=== PATIENT | female | born 1945 | race Caucasian/White ===

== ENCOUNTER 2021-01-04 13:36 | Outpatient (CLI) | payer MEDICARE, MEDICAID | END 2021-01-04 13:37 | disposition home or self-care (01) | LOC: BICCT 13:36 | PROVIDERS: ATTEND Internal Medicine | DX: Z12.2 Encounter for screening for malignant neoplasm of respiratory organs (principal); F17.210 Nicotine dependence, cigarettes, uncomplicated; J98.11 Atelectasis; I70.0 Atherosclerosis of aorta; I25.10 Atherosclerotic heart disease of native coronary artery without angina pectoris; K76.9 Liver disease, unspecified; R91.1 Solitary pulmonary nodule; J98.4 Other disorders of lung | CPT/HCPCS: 71271 ==

== ENCOUNTER 2021-01-04 13:43 | Outpatient (CLI) | payer MEDICARE, MEDICAID | END 2021-01-04 13:44 | disposition home or self-care (01) | LOC: BICMAMMO 13:43 | PROVIDERS: ATTEND Internal Medicine | DX: Z12.31 Encounter for screening mammogram for malignant neoplasm of breast (principal); Z13.820 Encounter for screening for osteoporosis; Z78.0 Asymptomatic menopausal state | CPT/HCPCS: 77063; 77067; 77080 ==

== ENCOUNTER 2023-03-26 14:41 | Outpatient (CLI) | payer MEDICARE, MEDICAID | END 2023-03-26 14:42 | disposition home or self-care (01) | LOC: BICCT 14:41 | PROVIDERS: ATTEND Internal Medicine | DX: R91.1 Solitary pulmonary nodule (principal); I25.10 Atherosclerotic heart disease of native coronary artery without angina pectoris | CPT/HCPCS: 71250 ==

== ENCOUNTER 2023-08-03 20:05 | Emergency (ER) | payer MEDICARE, OTHER ==
[2023-08-03 20:46] LABS: #Basophils 0.1 thou/uL (0.0-0.2); #Eosinphils 0.1 thou/uL (0.0-0.7); #Monocytes 0.6 thou/uL (0.11-0.59); #Neutrophils 8.1 thou/uL (1.40-6.50); %Basophils 1.1 % (0.0-1.0); %Eosinophils 1.1 % (0.0-10.0); %Lymphocytes 9.4 % (21.0-51.0); %Monocytes 6.1 % (0.0-10.0); %Neutrophils 81.9 % (42.0-75.0); Hemoglobin 14.4 g/dL (12.0-16.0); Mean Corpuscular HGB CONC 32.7 g/dL (32.0-36.0); Mean Corpuscular Hemoglobin 30.6 pg (27.0-31.0); Mean Corpuscular Volume 93.4 fl (78.0-98.0); Mean Platelet Volume 11.1 fL (7.4-10.4); Platelet Count 139 10x3/uL (130-400); RBC Distribution Width 13.2 % (11.5-14.5); Red Blood Cell (RBC) Count 4.71 mill/uL (4.20-5.40); White Blood Cell (WBC) Count 9.9 10x3/uL (4.8-10.8)
[2023-08-03 21:00] LABS: PTT 28.5 sec (22.9-36.1)
[2023-08-03 21:12] LABS: Troponin I Less than 0.010 ng/mL (< 0.028)
[2023-08-03 21:14] LABS: ALT (SGPT) 15 U/L (8-55); AST (SGOT) 19 U/L (5-34); Albumin 4.2 g/dL (3.4-4.8); Alkaline Phosphatase 76 U/L (40-110); Anion Gap 9 mmol/L (10-20); BUN (Urea Nitrogen) 17 mg/dL (9.8-20.1); Bilirubin, Total 0.5 mg/dL (0.2-1.2); Calc. Creatinine Clearance 0 mL/min (70-130); Calcium 9.1 mg/dL (7.8-10.44); Carbon Dioxide 26 mmol/L (23-31); Chloride 107 mmol/L (98-107); Estimated GFR 92; Globulin 2.4 g/dL (2.4-3.5); Glucose 98 mg/dL (83-110); Potassium 3.4 mmol/L (3.5-5.1); Protein, Total 6.6 g/dL (5.8-8.1); Sodium 139 mmol/L (136-145)
[2023-08-03] MEDS ORDERED: Lidocaine 1% w/Epinephrine 1:100K 20 ML VIAL ONE (21:18)
[2023-08-04] MEDS ORDERED: Boostrix 0.5 ML (Tdap) VIAL (>/=7 yrs of age) ONE (00:25)
[2023-08-04] MEDS ORDERED: cefTRIAXone (ROCEPHIN) 2 GM VIAL ONE (00:25)
[2023-08-04] MEDS ORDERED: Acetaminophen 500 MG TAB ONE (00:25)
[2023-08-04] MEDS ORDERED: Sodium Chloride 0.9% 100 ML ONE (00:26)
== END 2023-08-04 01:01 | disposition home or self-care (01) ==
LOC: ERS 20:05
DX: S02.42XA Fracture of alveolus of maxilla, initial encounter for closed fracture (principal); S02.2XXA Fracture of nasal bones, initial encounter for closed fracture; S01.412A Laceration without foreign body of left cheek and temporomandibular area, initial encounter; S01.81XA Laceration without foreign body of other part of head, initial encounter; W01.0XXA Fall on same level from slipping, tripping and stumbling without subsequent striking against object, initial encounter; Y93.01 Activity, walking, marching and hiking; Z23 Encounter for immunization
CPT/HCPCS: 12001; 12013; 70450; 70486; 71045; 72125; 72170; 80053; 84484; 85025; 85610; 85730; 90471; 90715; 96365; G0390; J0696; J3490

== ENCOUNTER 2024-07-29 18:19 | Inpatient (IN) | payer MEDICARE, MEDICAID ==
[2024-07-29] MEDS ORDERED: Ondansetron PF 4 MG/2 ML Vial IVP PRN ×2 (18:45→20:35)
[2024-07-29] MEDS ORDERED: Acetaminophen 325 MG TAB PO PRN (18:45)
[2024-07-29] MEDS ORDERED: Ondansetron ODT 4 MG TAB SL PRN (18:45)
[2024-07-29] MEDS ORDERED: NS 0.9% w/ 20 MEQ KCL 1,000 ML IV SCH (18:45)
[2024-07-29 19:43] VITALS: BMI 21.5
[2024-07-29] MEDS ORDERED: Albuterol 2.5 MG (3 mL) NEB NEB PRN (20:35)
[2024-07-29] MEDS ORDERED: Calcium Carbonate 500 MG ChewTAB PO PRN (20:35)
[2024-07-29] MEDS: tiZANidine HCl 4 MG TAB PO PRN (21:10)
[2024-07-29] MEDS: Nicotine 14 MG PATCH TD SCH (21:10)
[2024-07-29] MEDS: Rosuvastatin 10 MG TAB PO SCH (21:10)
[2024-07-29] MEDS: Doxycycline 100 MG CAP PO SCH (21:10)
[2024-07-29] MEDS: Famotidine/PF 20 mg/2ml Vial SLOW IVP SCH (21:10)
[2024-07-30 05:03] LABS: #Basophils Less than 0.03 10x3/uL (0.0-0.2); #Eosinophils Less than 0.03 10x3/uL (0.0-0.7); %Lymphocytes 14.6 % (21.0-51.0); %Neutrophils 80.1 % (42.0-75.0); Hematocrit 37.2 % (36.0-47.0); Hemoglobin 12.1 g/dL (12.0-16.0); Mean Corpuscular HGB CONC 32.5 g/dL (32.0-36.0); Mean Corpuscular Hemoglobin 28.9 pg (27.0-31.0); Mean Platelet Volume 11.7 fL (7.4-10.4); Platelet Count 124 10x3/uL (130-400); RBC Distribution Width 14.3 % (11.5-14.5); Red Blood Cell (RBC) Count 4.18 mill/uL (4.20-5.40)
[2024-07-30] MEDS: methylPREDNISolone Sod Succ 40 MG VIAL IVP SCH (05:04)
[2024-07-30 05:27] LABS: ALT (SGPT) 12 U/L (8-55); AST (SGOT) 16 U/L (5-34); Albumin 3.2 g/dL (3.4-4.8); Alkaline Phosphatase 71 U/L (40-110); Anion Gap 12 mmol/L (10-20); BUN (Urea Nitrogen) 16 mg/dL (9.8-20.1); Bilirubin, Total 0.3 mg/dL (0.2-1.2); Calc. Creatinine Clearance 80 mL/min (70-130); Calcium 8.6 mg/dL (7.8-10.44); Carbon Dioxide 27 mmol/L (23-31); Chloride 105 mmol/L (98-107); Estimated GFR 96; Glucose 136 mg/dL (83-110); Magnesium 2.2 mg/dL (1.6-2.6); Potassium 3.1 mmol/L (3.5-5.1); Protein, Total 6.2 g/dL (5.8-8.1); Sodium 141 mmol/L (136-145)
[2024-07-30] MEDS: Oxybutynin ER 5 MG TAB PO SCH (08:15)
[2024-07-30] MEDS: Enoxaparin 40 MG (0.4 mL) SYRINGE SC SCH (08:15)
[2024-07-30] MEDS: Metoprolol Succinate XL 25 MG ER.TAB PO SCH (08:15)
[2024-07-30] MEDS: Ipratropium/Albuterol 3 ML NEB NEB PRN (14:15)
[2024-07-30] MEDS: Amlodipine 10 MG TAB PO SCH (16:07)
[2024-07-31 04:19] LABS: #Basophils Less than 0.03 10x3/uL (0.0-0.2); %Eosinophils 0.8 % (0.0-10.0); %Lymphocytes 10.1 % (21.0-51.0); %Monocytes 2.3 % (0.0-10.0); %Neutrophils 86.3 % (42.0-75.0); Hematocrit 38.7 % (36.0-47.0); Hemoglobin 12.6 g/dL (12.0-16.0); Mean Corpuscular HGB CONC 32.6 g/dL (32.0-36.0); Mean Corpuscular Hemoglobin 28.6 pg (27.0-31.0); Mean Corpuscular Volume 87.8 fL (78.0-98.0); Mean Platelet Volume 11.6 fL (7.4-10.4); Platelet Count 123 10x3/uL (130-400); Red Blood Cell (RBC) Count 4.41 mill/uL (4.20-5.40)
[2024-07-31] MEDS: guaiFENesin 200 MG TAB PO PRN (09:30)
[2024-07-31] MEDS: Amlodipine 10 MG TAB PO SCH (09:30)
[2024-07-31] MEDS: Acetaminophen 325 MG TAB PO PRN (13:55)
[2024-07-31] MEDS: Senokot S 8.6-50 MG TAB PO PRN (21:16)
[2024-07-31] MEDS: methylPREDNISolone Sod Succ 40 MG VIAL IVP SCH (21:27)
[2024-08-01 04:00] LABS: #Basophils Less than 0.03 10x3/uL (0.0-0.2); #Eosinophils Less than 0.03 10x3/uL (0.0-0.7); %Eosinophils 0.3 % (0.0-10.0); %Lymphocytes 12.9 % (21.0-51.0); %Monocytes 2.6 % (0.0-10.0); %Neutrophils 83.9 % (42.0-75.0); Hematocrit 43.6 % (36.0-47.0); Hemoglobin 14.2 g/dL (12.0-16.0); Mean Corpuscular HGB CONC 32.6 g/dL (32.0-36.0); Mean Corpuscular Hemoglobin 28.7 pg (27.0-31.0); Mean Corpuscular Volume 88.3 fL (78.0-98.0); Mean Platelet Volume 10.7 fL (7.4-10.4); Platelet Count 168 10x3/uL (130-400); RBC Distribution Width 14.1 % (11.5-14.5); Red Blood Cell (RBC) Count 4.94 mill/uL (4.20-5.40)
[2024-08-01] MEDS: Lisinopril 10 MG TAB PO SCH (10:02)
[2024-08-01 11:43] VITALS: TEMP 98
[2024-08-01 16:21] VITALS: BP 151/71
== END 2024-08-01 16:59 | disposition home or self-care (01) | DRG 189 ==
LOC: 2NO 18:19
PROVIDERS: ADMIT Internal Medicine; ATTEND Hospitalist
DX: J96.01 Acute respiratory failure with hypoxia (principal); J44.1 Chronic obstructive pulmonary disease with (acute) exacerbation; J21.0 Acute bronchiolitis due to respiratory syncytial virus; I69.354 Hemiplegia and hemiparesis following cerebral infarction affecting left non-dominant side; I10 Essential (primary) hypertension; Z66 Do not resuscitate; E78.5 Hyperlipidemia, unspecified; Z88.2 Allergy status to sulfonamides
CPT/HCPCS: 36415; 80053; 83735; 84145; 85025; 93306; 94640; J1650; J2919; J3490; J7620